=== PATIENT | female | born 1960 | race Caucasian/White ===

== ENCOUNTER 2017-06-17 17:53 | Emergency (ER) | payer OTHER ==
[~2017-06-17] VITALS: Ht 157.5 cm; Wt 89.5 kg
[2017-06-17 18:25] LABS: HEMATOCRIT 43.7 % (34.6-47.8); HEMOGLOBIN 14.7 g/dL (11.7-16.4); WHITE BLOOD COUNT 5.7 x10^3/uL (3.4-10)
[2017-06-17] MEDS ORDERED: SODIUM CHLORIDE FLUSH 10ML SYR IVF ONE (18:30)
[2017-06-17] MEDS ORDERED: PLEASE ENTER ALLERGIES MC SCH ×2 (18:30)
[2017-06-17 18:32] LABS: BLOOD UREA NITROGEN 17 mg/dL (7-18)
[2017-06-17 19:11] VITALS: BP 141/83
== END 2017-06-17 19:22 | disposition home or self-care (01) ==
LOC: ED 19:00
DX: N30.01 Acute cystitis with hematuria (principal); I10 Essential (primary) hypertension; Z90.710 Acquired absence of both cervix and uterus
CPT/HCPCS: 36415; 80048; 81001; 82040; 85025; 87086; 99284

== ENCOUNTER 2019-04-13 07:15 | Outpatient (CLI) | payer OTHER | END 2019-04-13 23:59 | disposition home or self-care (01) | LOC: CFH 07:15 | PROVIDERS: ATTEND Nurse Practitioner Family | DX: R92.1 Mammographic calcification found on diagnostic imaging of breast (principal) | CPT/HCPCS: 77065; G0279 ==

== ENCOUNTER 2019-10-19 09:32 | Outpatient (CLI) | payer OTHER ==
[2019-10-19] MEDS ORDERED: LIDOCAINE 1%, 20ML ONE (11:30)
[2019-10-19] MEDS ORDERED: SODIUM BICARBONATE 4.0%, 5ML ONE (11:30)
[2019-10-19] MEDS ORDERED: LIDOCAINE 1%-EPI 1:100K, 20ML ONE (11:30)
== END 2019-10-19 23:59 | disposition home or self-care (01) ==
LOC: CFH 09:32
PROVIDERS: ATTEND Nurse Practitioner Family
DX: R92.1 Mammographic calcification found on diagnostic imaging of breast (principal); N64.89 Other specified disorders of breast
CPT/HCPCS: 19081; 77065; 88305; J3490